=== PATIENT | male | born 1960 | race Caucasian/White ===

== ENCOUNTER 2018-04-12 18:52 | Inpatient (IN) ==
--- NOTE | 2018-04-12 19:05 | ED ---
HPI General Chief Complaint: Chest Pain Stated Complaint: chest injury Time Seen by Provider: 04/12/18 18:55 Source: patient Mode of arrival: ambulatory Limitations: no limitations History of Present Illness HPI narrative: 58-year-old male complains of left-sided chest wall pain. Patient was working on a car and the car fell on left chest this evening. Patient states that the pain is sharp severe pain localized left chest. Patient denies any pain radiation. Patient states that pain is worse with deep breathing and movement. Patient has history of COPD. Patient is a smoker. Patient states that he is not on any anticoagulation. MD complaint: chest pain Complete Quality Measures for STEMI Alert Patients STEMI Alert: No Onset (ago): minute(s) Duration: constant Onset: during rest Pain location: left chest Severity: severe Severity scale (1-10): 10 Quality: sharp Pain radiation: none Relieving factors: nothing Exacerbating factors: inspiration and movement Context: trauma/injury Associated symptoms: dyspnea Treatments prior to arrival chest pain: none Related Data Home Medications Medication Instructions Recorded Confirmed duloxetine [Cymbalta] See Label Instructions .ROUTE 04/12/18 04/12/18 .COMPLEX gabapentin 300 mg PO TID 04/12/18 04/12/18 trazodone 50 mg PO DAILY 04/12/18 04/12/18 Allergies Allergy/AdvReac Type Severity Reaction Status Date / Time No Known Allergies Allergy Unverified 04/12/18 18:56 Review of Systems ROS: all other systems reviewed are negative PMFSH History History Provided By: Patient Medical History Medical History Anxiety (Acute) COPD (chronic obstructive pulmonary disease) (Acute) History of appendicitis (Acute) Surgical History Surgical History Previous back surgery (Acute) Social History Social History Smoking Status: Current every day smoker Tobacco Type: Cigarettes How Often Do You Have a Drink Containing Alcohol: 2 to 3 times a week Recent Travel in [place] within the Last 8 Weeks: No Recent Out of Country Travel within the Last 8 Weeks: No Exam Narrative Exam Narrative: GENERAL: Well-nourished, well-developed patient. SKIN: Focused skin assessment warm/dry. HEAD: Normocephalic. EYES: No scleral icterus. No injection or drainage. NECK: Supple, trachea midline. No JVD or lymphadenopathy. CARDIOVASCULAR: Regular rate and rhythm without murmurs, gallops, or rubs. RESPIRATORY: Breath sounds equal bilaterally. No accessory muscle use. GASTROINTESTINAL: Abdomen soft, non-tender, nondistended. MUSCULOSKELETAL: No cyanosis, or edema. BACK: Nontender without obvious deformity. No CVA tenderness. Patient has moderate tenderness on palpation left chest wall area with mild ecchymosis noted. Breath sounds equal bilaterally. Course Reevaluation(s) Reevaluation #1: Case signed out to me by Dr. Adrian. Patient found to have numerous rib fractures and occult hemothorax. Case discussed with Dr. Thomas (trauma), who will admit patient to step-down. Patient understands and agrees with plan. Initial Documented Vital Signs Pulse Rate 90 04/12/18 18:56 Respiratory Rate 16 04/12/18 18:56 Blood Pressure 132/78 04/12/18 18:56 Pulse Oximetry 95 04/12/18 18:56 Last Documented Vital Signs Temperature 98.0 F 04/13/18 01:36 Pulse Rate 94 H 04/13/18 01:52 Respiratory Rate 18 04/13/18 01:36 Blood Pressure 197/97 H 04/13/18 01:36 Pulse Oximetry 95 04/12/18 22:50 Medical Decision Making MDM Narrative Medical decision making narrative: 58-year-old male with left chest wall injury. Differential Diagnosis Differential Diagnosis: Differential diagnosis including chest wall contusion, hemopneumothorax. Lab Data Result diagrams: 04/12/18 19:16 04/12/18 19:16 Lab Results 04/12/18 04/12/18 04/12/18 Range/Units 19:16 19:16 19:16 WBC 9.1 (4.0-11.0) th/mm3 RBC 5.43 (4.50-5.90) mil/mm3 Hgb 19.2 H (13.0-17.0) gm/dL Hct 55.0 H (39.0-51.0) % MCV 101.3 H (80.0-100.0) fL MCH 35.3 H (27.0-34.0) pg MCHC 34.9 (32.0-36.0) % RDW 15.0 (11.6-17.2) % Plt Count 153 (150-450) th/mm3 MPV 8.5 (7.0-11.0) fL Neut % (Auto) 78.7 H (16.0-70.0) % Lymph % (Auto) 8.9 L (9.0-44.0) % [place] % (Auto) 10.6 H (0.0-8.0) % Eos % (Auto) 1.5 (0.0-4.0) % Baso % (Auto) 0.3 (0.0-2.0) % Neut # (Auto) 7.1 (1.8-7.7) th/mm3 Lymph # (Auto) 0.8 L (1.0-4.8) th/mm3 [place] # (Auto) 1.0 H (0.0-0.9) th/mm3 Eos # (Auto) 0.1 (0.0-0.4) th/mm3 Baso # (Auto) 0.0 (0.0-0.2) th/mm3 WBC Differential . Differential Comment Auto diff final PT 10.1 (9.8-11.6) sec INR 1.0 Ratio APTT 29.2 (24.3-30.1) sec Sodium 133 L (136-145) meq/L Potassium 4.3 (3.5-5.1) meq/L Chloride 101 (98-107) meq/L Carbon Dioxide 23.0 (21.0-32.0) meq/L Anion Gap 9 (5-15) meq/L BUN 33 H (7-18) mg/dL Creatinine 2.48 H (0.60-1.30) mg/dL Estimated GFR 27 L (>89) mL/min Random Glucose 142 H (74-106) mg/dL Calcium 9.3 (8.5-10.1) mg/dL Total Bilirubin 1.2 H (0.2-1.0) mg/dL AST 108 H (15-37) U/L ALT 157 H (12-78) U/L Alkaline Phosphatase 62 (45-117) U/L Total Creatine Kinase 213 (39-308) U/L CK-MB (CK-2) 2.1 (0.5-3.6) ng/mL Troponin I Less than 0.02 L (0.02-0.05) ng/mL Total Protein 8.5 H (6.4-8.2) g/dL Albumin 3.8 (3.4-5.0) g/dL Imaging Data Radiologist's impression: Chest X-Ray 04/12/18 18:57 CONCLUSION: Minimal basilar atelectasis. Abdomen/Pelvis CT 04/12/18 21:18 CONCLUSION: No acute abnormality seen on noncontrast CT of the abdomen and pelvis. Chest CT 04/12/18 21:18 CONCLUSION: 1. Bilateral rib fractures with tiny bilateral pneumothoraces, tiny right and very small left pneumothoraces and mild bilateral chest wall emphysema. Trace atelectasis/parenchymal contusions. Please see above. 2. No acute abnormality seen of the heart or great vessels on these noncontrast images. 3. Distended and fluid-filled esophagus. The differential includes achalasia and massive the GE junction. Direct visualization suggested if felt clinically indicated. Discharge Plan Discharge Disposition Patient Disposition: 30 Still Patient Discharge Condition Condition: Fair Discharge Details Diagnosis: Multiple fractures of ribs, Pneumothorax, Crushing injury of chest Physicians Team ED Provider: Nataliya Silverman Primary Care Provider: Primary Care Allyson Clinton Attending Provider: Jermaine Thomas Discharge Interventions Interventions: ED Discharge Assessment Last Done: 04/13/18 01:39 Status ED Status: Left Department Discharge Information Discharge Date/Time: 04/13/18 01:40
[2018-04-12] MEDS ORDERED: Morphine Inj 4 MG/ML Vial IV.PUSH ONE (19:21)
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
[2018-04-12 20:39] LABS: Baso % (Auto) 0.3 % (0.0-2.0); Eos # (Auto) 0.1 th/mm3 (0.0-0.4); Eos % (Auto) 1.5 % (0.0-4.0); Hemoglobin 19.2 gm/dL (13.0-17.0); Lymph # (Auto) 0.8 th/mm3 (1.0-4.8); Lymph % (Auto) 8.9 % (9.0-44.0); Mean Corpuscular HGB Conc 34.9 % (32.0-36.0); Mean Corpuscular Hemoglobin 35.3 pg (27.0-34.0); Mean Corpuscular Volume 101.3 fL (80.0-100.0); Mean Platelet Volume 8.5 fL (7.0-11.0); Mono % (Auto) 10.6 % (0.0-8.0); Neut # (Auto) 7.1 th/mm3 (1.8-7.7); Neut % (Auto) 78.7 % (16.0-70.0); Platelet Count 153 th/mm3 (150-450); Red Blood Count 5.43 mil/mm3 (4.50-5.90); White Blood Count 9.1 th/mm3 (4.0-11.0)
[2018-04-12 20:51] LABS: Prothrombin Time 10.1 sec (9.8-11.6)
[2018-04-12 20:56] LABS: Activated Partial Thrombo Time 29.2 sec (24.3-30.1)
[2018-04-12 21:01] LABS: Alanine Aminotransferase 157 U/L (12-78)
[2018-04-12 21:11] LABS: Albumin 3.8 g/dL (3.4-5.0); Alkaline Phosphatase 62 U/L (45-117); Anion Gap 9 meq/L (5-15); Aspartate Aminotransferase 108 U/L (15-37); Blood Urea Nitrogen 33 mg/dL (7-18); Calcium 9.3 mg/dL (8.5-10.1); Chloride 101 meq/L (98-107); Creatine Kinase 213 U/L (39-308); Glomerular Filtration Rate 27 mL/min (>89); Glucose,Random 142 mg/dL (74-106); Potassium 4.3 meq/L (3.5-5.1); Sodium 133 meq/L (136-145); Total Protein 8.5 g/dL (6.4-8.2)
[2018-04-12] MEDS ORDERED: Sod Chloride 0.9% Inj 1,000 ML IV.SIG ONE (21:18)
[2018-04-12 21:23] LABS: Creatine Kinase MB 2.1 ng/mL (0.5-3.6)
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
[2018-04-12] MEDS ORDERED: HYDROmorphone PF Inj 2 MG/ML Vial IV.PUSH ONE (22:38)
[2018-04-13] MEDS ORDERED: Naloxone Inj 0.4 MG/ML Vial IV.PUSH PRN (02:01)
[2018-04-13] MEDS ORDERED: Post-op Orders (for Pharmacy) OTHER ONE (02:01)
[2018-04-13] MEDS ORDERED: Bisacodyl 10 MG Supp RECTAL PRN (02:01)
[2018-04-13] MEDS ORDERED: Morphine Inj 4 MG/ML Vial IV.PUSH PRN (02:01)
[2018-04-13] MEDS ORDERED: Sod Chloride 0.9% Inj 1,000 ML IV.CONT SCH (02:15)
[2018-04-13] MEDS: Morphine Inj 4 MG/ML Vial IV.PUSH PRN ×2 (03:24→08:56)
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
[2018-04-13] MEDS ORDERED: Lidocaine 5% Patch T-DERMAL SCH (09:00)
[2018-04-13] MEDS ORDERED: Famotidine 20 MG Tablet PO SCH (09:00)
[2018-04-13] MEDS ORDERED: Gabapentin 300 MG Capsule PO SCH (09:00)
[2018-04-13] MEDS ORDERED: Senna/Docusate Sodium 8.6/50 MG Tablet PO SCH (09:00)
[2018-04-13] MEDS ORDERED: Enoxaparin Inj 40 MG/0.4 ML Syringe SQ SCH (09:00)
[2018-04-13] MEDS ORDERED: traZODone 50 MG Tablet PO SCH (09:00)
[2018-04-13 09:16] VITALS: BP 166/78; TEMP 98.6; O2SAT 89
[2018-04-13 11:02] VITALS: PULSE 87; RESP 12
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
== END 2018-04-13 12:40 | disposition home or self-care (01) ==
LOC: NEPE 18:52 → NEDA 04-13 00:21 → HCIS 04-13 01:23 → N06 04-13 03:06
PROVIDERS: ADMIT Surgery; ATTEND Surgery